=== PATIENT | male | born 2000 | race Caucasian/White ===

== ENCOUNTER 2021-10-16 18:00 | Emergency (ER) | payer OTHER, SELFPAY ==
[2021-10-16 18:02] VITALS: BP 137/60; PULSE 76; RESP 18; TEMP 37.2; O2SAT 98; BMI 24.3
--- NOTE | 2021-10-16 19:34 | ED.GENADULT ---
HPI - General Adult General Chief complaint: General Medical Stated complaint: dizziness, left side of body numb Time Seen by Provider: 10/16/21 19:17 Source: patient Mode of arrival: ambulatory Limitations: no limitations History of Present Illness HPI narrative: 21 yo male presenting with right upper dental pain for the last 2 days. He reports the top upper 3 teeth have been hurting him and the pain radiates into the right side of his face. He had associated numbness of his face today while at work, has since resolved. He also reports increased nasal congestion with mucus and transient epistaxis after blowing his nose 2 days ago. No fever, chills, facial swelling, ear pain, difficulty eating. He has not seen a dentist in 2-3 years. MD complaint: Right maxillary pain Onset (ago): day(s) (2) Location: face and mouth Radiation: non-radiation Severity: moderate Severity scale (1-10): 6 Quality: aching Pain Consistency: intermittent Relieving factors: none Exacerbating factors: none Associated symptoms: denies other symptoms Treatments prior to arrival: none Related Data Previous Rx's Medication Instructions Recorded amoxicillin 875 mg-potassium 1 tab PO BID #14 tabs 10/16/21 clavulanate 125 mg tablet ibuprofen 800 mg tablet 800 mg PO Q8H PRN pain #20 tabs 10/16/21 Allergies Allergy/AdvReac Type Severity Reaction Status Date / Time No Known Allergies Allergy Verified 10/16/21 19:42 Review of Systems Review of Systems: Constitutional: No Fever, No Chills ENT/Mouth: No sore throat, No Rhinorrhea, No Swallowing Difficulty, +Toothpain, No Otalgia Eyes: No Eye Pain, No Swelling, No Redness Cardiovascular: No Chest Pain, No SOB Respiratory: No Cough, No Sputum Gastrointestinal: No Nausea, No Vomiting, No Diarrhea, No abdominal Pain Musculoskeletal: No joint pain, No Myalgias Skin: No Skin Lesions, No rash Neuro: No Weakness, + Numbness, No Dizziness, + Headache Heme/Lymph: No Bruising, No Lymphadenopathy PMFSH Social History Social History Advance Directives: No Advance Directives Information Provided: Yes Physical Exam ED Vital Signs: Vital Signs - 24 hr 10/16/21 18:02 Temperature 98.9 F Pulse Rate 76 Respiratory Rate 18 Blood Pressure 137/60 Pulse Oximetry 98 Oxygen Delivery Method Room Air BMI result Body Mass Index 24.3 Appearance: Alert. Oriented X3. No acute distress. Eyes: Pupils equal, round and reactive to light. ENT: Pharynx normal. Moist mucous membranes. Upper molars number 1-3 with tenderness, associated gingival darkening without any palpable fluctuance. No dental mobility. No obvious dental trauma. Normal inspection of the nares, no active epistaxis. Neck: Normal inspection. Neck supple. No lymphadenopathy CVS: Normal heart rate and rhythm. Pulses normal. Respiratory: No respiratory distress. Breath sounds normal. Skin: Skin warm and dry. Normal skin color. Normal skin turgor. No rashes. Extremities: No lower extremity edema. Normal inspection times x4 Neuro: Oriented X 3. Grossly normal, nonfocal. No sensory deficits on the face. Cranial nerves 2-12 were intact Course Course Course Narrative: 21-year-old male presents to the ER for evaluation of right upper dental and right-sided maxillary pain associated with epistaxis and nasal congestion. On examination he has tenderness of teeth 1. Through 3 without any obvious infection or trauma. He has tenderness of the right maxillary sinus. Concern for evolving dental infection versus possible sinus infection will prescribe Augmentin and ibuprofen for pain. He was counseled on importance of follow-up with dental and a list was provided to him. He is stable for discharge home with outpatient follow-up. Discharge Plan Discharge Clinical Impression: Toothache Patient Disposition: Home, Self-Care Instructions: Toothache (ED) Additional Instructions: Keep the prescribed antibiotic as directed put complete the entire course put Take the prescribed anti-inflammatory pain medication as needed for pain. take it with food. Also recommend taking Tylenol 1000 mg every 6 hours around the clock. Follow-up with the dentist from the list provided a soon as possible. If you develop new or worsening symptoms call 911 or come back to the ER for further evaluation. Prescriptions: New amoxicillin-pot clavulanate 875-125 mg tablet 1 tab PO BID Qty: 14 0RF ibuprofen 800 mg tablet 800 mg PO Q8H PRN (Reason: pain) Qty: 20 0RF Stand Alone Forms: Work/School Release
== END 2021-10-16 19:47 | disposition home or self-care (01) ==
PROVIDERS: Emergency Provider Internal Medicine
DX: K08.89 Other specified disorders of teeth and supporting structures (principal)
CPT/HCPCS: 99282; 99283